=== PATIENT | female | born 1985 | race Caucasian/White ===

== ENCOUNTER 2016-12-29 09:47 | Outpatient (CLI) | payer BC ==
[~2016-12-29] VITALS: Ht 157.5 cm; Wt 114.0 kg
[~2016-12-29 09:47] MED LIST: ASPI-515 PO; CLOM50TA PO; METF100P3 PO; ONDA4TAB7 PO
[2016-12-29 10:04] VITALS: BP 115/77
[2016-12-29] MEDS ORDERED: PREN1TAB60 PO (11:06)
== END 2016-12-29 11:15 | disposition home or self-care (01) ==
LOC: LDOP 09:47
PROVIDERS: ATTEND Obstetrics & Gynecology Gynecology
DX: O24.419 Gestational diabetes mellitus in pregnancy, unspecified control (principal); O9A.213 Injury, poisoning and certain other consequences of external causes complicating pregnancy, third trimester; Z3A.34 34 weeks gestation of pregnancy
CPT/HCPCS: 59025; 99211; G0463

== ENCOUNTER 2017-01-18 22:04 | Observation (INO) | payer BC ==
[~2017-01-18] VITALS: Ht 165.1 cm; Wt 118.0 kg
[~2017-01-18 22:04] MED LIST changes: +PREN1TAB60 PO
[2017-01-19] MEDS ORDERED: LACTATED RINGERS 1,000 ML IV ONE (01:00)
[2017-01-19] MEDS ORDERED: FENTANYL PF 100 MCG/2ML ONE ×2 (01:27→06:32)
[2017-01-19] MEDS: FENTANYL PF 100 MCG/2ML IVPush PRN ×2 (01:39→06:35)
[2017-01-19] MEDS ORDERED: LACTATED RINGERS 1,000 ML IV SCH (05:30)
== END 2017-01-19 10:42 | disposition home or self-care (01) ==
LOC: LDOP 22:04 → LDIP 01-19 01:45
PROVIDERS: ADMIT Obstetrics & Gynecology Gynecology; ATTEND Obstetrics & Gynecology Gynecology
DX: O42.92 Full-term premature rupture of membranes, unspecified as to length of time between rupture and onset of labor (principal); O26.893 Other specified pregnancy related conditions, third trimester; R10.9 Unspecified abdominal pain; Z3A.37 37 weeks gestation of pregnancy
CPT/HCPCS: 59025; 81001; 87086; 96361; 96374; 96376; G0378; J3010; J7120; 96360

== ENCOUNTER 2017-01-29 22:20 | Outpatient (CLI) | payer BC ==
[~2017-01-29] VITALS: Ht 157.5 cm; Wt 109.1 kg
[2017-01-29 22:30] VITALS: BP 118/70
== END 2017-01-29 23:31 | disposition home or self-care (01) ==
LOC: LDOP 22:20
PROVIDERS: ATTEND Obstetrics & Gynecology Gynecology
DX: O42.92 Full-term premature rupture of membranes, unspecified as to length of time between rupture and onset of labor (principal); O24.419 Gestational diabetes mellitus in pregnancy, unspecified control; O34.83 Maternal care for other abnormalities of pelvic organs, third trimester; E28.2 Polycystic ovarian syndrome; Z3A.38 38 weeks gestation of pregnancy
CPT/HCPCS: 59025; 81001; 87086; 89060; 99211; G0463; Q0114

== ENCOUNTER 2017-02-16 08:31 | Inpatient (IN) | payer BC ==
[~2017-02-16] VITALS: Ht 157.5 cm; Wt 111.4 kg
[2017-02-16] MEDS ORDERED: OXYTOCIN 30U/ 0.9% NaCL 500ML 500 ML IV SCH (10:14)
[2017-02-16] MEDS ORDERED: LACTATED RINGERS 1,000 ML IV SCH ×2 (10:14→10:30)
[2017-02-16] MEDS ORDERED: SODIUM CITRATE/CITRIC ACID 30 ML UDC PO ONE (10:30)
[2017-02-16] MEDS ORDERED: METOCLOPRAMIDE 5 MG/ML, 2ML IV ONE (10:30)
[2017-02-16] MEDS ORDERED: PLEASE ENTER HEIGHT AND WEIGHT MC SCH (10:30)
[2017-02-16] MEDS ORDERED: LACTATED RINGERS 1,000 ML IVBOLUS ONE (10:30)
[2017-02-16 10:38] VITALS: BP 108/68
[2017-02-16] MEDS ORDERED: NEWBORN KIT ONE (11:03)
[2017-02-16] MEDS ORDERED: OXYTOCIN 30U/ 0.9% NaCL 500ML 500 ML ONE (11:03)
[2017-02-16] MEDS ORDERED: SODIUM CITRATE/CITRIC ACID 30 ML UDC ONE ×2 (11:58→12:12)
[2017-02-16] MEDS ORDERED: OXYTOCIN 10 UNITS/ML, 1ML ONE (12:12)
[2017-02-16] MEDS ORDERED: LIDOCAINE 1%, 20ML ONE (12:12)
[2017-02-16] MEDS ORDERED: EPHEDRINE 50 MG/ML, 1ML ONE (12:12)
[2017-02-16] MEDS ORDERED: CEFAZOLIN 1,000 MG ONE (12:12)
[2017-02-16] MEDS ORDERED: KETOROLAC 30 MG/1 ML ONE (12:12)
[2017-02-16] MEDS ORDERED: FENTANYL PF 100 MCG/2ML ONE (12:55)
[2017-02-16] MEDS: KETOROLAC 30 MG/1 ML IV SCH ×2 (13:30→19:55)
[2017-02-16] MEDS: OXYTOCIN 30U/ 0.9% NaCL 500ML 500 ML IV SCH ×2 (13:33→23:33)
[2017-02-16] MEDS: LACTATED RINGERS 1,000 ML IV SCH ×4 (13:33→23:33)
[2017-02-16] MEDS ORDERED: RHOGAM FROM BLOOD BANK 1 NOTE EA IM/IV ONE (14:00)
[2017-02-16] MEDS ORDERED: MEASLES,MUMPS&RUBELLA VACC/PF 0.5 ML SQ-VACC PRN (14:00)
[2017-02-16] MEDS ORDERED: ONDANSETRON 2MG/ML, 2ML IV PRN ×2 (14:00→15:00)
[2017-02-16] MEDS ORDERED: OXYcodone/APAP 5/325MG TABLET PO PRN (14:00)
[2017-02-16] MEDS ORDERED: CALCIUM CARBONATE 500 MG TAB.CHEW PO PRN (14:00)
[2017-02-16] MEDS ORDERED: MISOPROSTOL 200 MCG TABLET PR PRN (14:00)
[2017-02-16] MEDS ORDERED: DIPH,PERTUSS(ACELL),TET VAC/PF NC IM-VACC PRN (14:00)
[2017-02-16] MEDS ORDERED: HYDROmorphone 1 MG/ML, 1ML ONE (14:36)
[2017-02-16] MEDS: HYDROmorphone 1 MG/ML, 1ML IV PRN ×3 (14:44→22:29)
[2017-02-16] MEDS ORDERED: HYDROmorphone 2 MG/ML, 1ML IV PRN (15:00)
[2017-02-16] MEDS ORDERED: OXYcodone 5 MG/5 ML ORAL.SOL UDC PO PRN (15:00)
[2017-02-16] MEDS ORDERED: EPHEDRINE 50 MG/ML, 1ML IV PRN (15:00)
[2017-02-16] MEDS ORDERED: FENTANYL PF 100 MCG/2ML IVPush PRN (15:00)
[2017-02-16] MEDS: NYSTATIN TOPICAL POWDER 15GM TP SCH ×2 (16:00→23:00)
[2017-02-16 16:36] VITALS: BP 126/72
[2017-02-16 17:55] VITALS: BP 90/62
[2017-02-16] MEDS: SIMETHICONE 80 MG CHEW TAB PO PRN (19:55)
[2017-02-16 20:00] VITALS: BP 115/67
[2017-02-17] MEDS: KETOROLAC 30 MG/1 ML IV SCH ×4 (02:02→20:00)
[2017-02-17 02:09] VITALS: BP 103/64
[2017-02-17] MEDS: OXYcodone IR 5MG TABLET PO PRN ×6 (02:09→22:25)
[2017-02-17 03:55] VITALS: BP 111/61
[2017-02-17] MEDS: LACTATED RINGERS 1,000 ML IV SCH ×5 (05:33→21:33)
[2017-02-17] MEDS: DOCUSATE 100 MG CAPSULE PO PRN ×2 (07:58→20:51)
[2017-02-17] MEDS: SIMETHICONE 80 MG CHEW TAB PO PRN ×3 (07:59→20:51)
[2017-02-17 08:10] VITALS: BP 104/70
[2017-02-17] MEDS: NYSTATIN TOPICAL POWDER 15GM TP SCH ×3 (09:00→21:00)
[2017-02-17] MEDS: OXYTOCIN 30U/ 0.9% NaCL 500ML 500 ML IV SCH ×2 (09:33→19:33)
[2017-02-17] MEDS: PRENATAL VIT/IRON/FA 1 EACH TABLET PO SCH (10:22)
[2017-02-17 12:30] VITALS: BP 106/70
[2017-02-17 19:30] VITALS: BP 103/69
[2017-02-17] MEDS: IBUPROFEN 600 MG TABLET PO PRN (20:51)
[2017-02-18] MEDS: KETOROLAC 30 MG/1 ML IV SCH ×2 (02:00→08:00)
[2017-02-18] MEDS: OXYcodone IR 5MG TABLET PO PRN ×5 (03:00→20:54)
[2017-02-18] MEDS: IBUPROFEN 600 MG TABLET PO PRN ×4 (03:00→23:12)
[2017-02-18] MEDS: SIMETHICONE 80 MG CHEW TAB PO PRN ×3 (03:00→19:47)
[2017-02-18] MEDS: OXYTOCIN 30U/ 0.9% NaCL 500ML 500 ML IV SCH ×2 (05:33→15:33)
[2017-02-18] MEDS: LACTATED RINGERS 1,000 ML IV SCH ×4 (05:33→15:33)
[2017-02-18] MEDS: NYSTATIN TOPICAL POWDER 15GM TP SCH ×3 (07:31→21:00)
[2017-02-18] MEDS: PRENATAL VIT/IRON/FA 1 EACH TABLET PO SCH (07:31)
[2017-02-18 08:10] VITALS: BP 98/63
[2017-02-18] MEDS: DOCUSATE 100 MG CAPSULE PO PRN ×2 (09:56→20:54)
[2017-02-18 21:00] VITALS: BP 112/62
[2017-02-19] MEDS: OXYcodone IR 5MG TABLET PO PRN ×3 (00:45→10:11)
[2017-02-19] MEDS: IBUPROFEN 600 MG TABLET PO PRN (05:23)
[2017-02-19 07:20] VITALS: BP 116/76
[2017-02-19] MEDS: PRENATAL VIT/IRON/FA 1 EACH TABLET PO SCH (10:10)
[2017-02-19] MEDS: DOCUSATE 100 MG CAPSULE PO PRN (10:10)
[2017-02-19] MEDS ORDERED: OXYC-302 PO (11:48)
[2017-02-19] MEDS ORDERED: IBUP-1222 PO (11:48)
[2017-02-19] MEDS ORDERED: DOCU-30 PO (11:49)
== END 2017-02-19 12:37 | disposition home or self-care (01) | DRG 765 ==
LOC: LDIP 09:57 → 2NW 15:48
PROVIDERS: ADMIT Obstetrics & Gynecology Gynecology; ATTEND Obstetrics & Gynecology Gynecology
PROC: 10D00Z1 Extraction of Products of Conception, Low, Open Approach (ICD-10-PCS; principal; 2017-02-16)
DX: O34.211 Maternal care for low transverse scar from previous cesarean delivery (principal); Z68.41 Body mass index [BMI] 40.0-44.9, adult; O98.82 Other maternal infectious and parasitic diseases complicating childbirth; E66.9 Obesity, unspecified; O24.420 Gestational diabetes mellitus in childbirth, diet controlled; B37.9 Candidiasis, unspecified; O48.0 Post-term pregnancy; O99.214 Obesity complicating childbirth; Z83.3 Family history of diabetes mellitus; Z82.3 Family history of stroke; Z80.41 Family history of malignant neoplasm of ovary; Z80.3 Family history of malignant neoplasm of breast; Z88.1 Allergy status to other antibiotic agents; Z88.5 Allergy status to narcotic agent; Z88.8 Allergy status to other drugs, medicaments and biological substances; Z37.0 Single live birth; Z3A.41 41 weeks gestation of pregnancy
CPT/HCPCS: 36415; 82803; 82962; 85025; 86850; 86900; J0690; J1170; J1885; J3010; J3490; J2590; J7120

== ENCOUNTER 2017-12-15 17:24 | Emergency (ER) | payer BC ==
[~2017-12-15] VITALS: Ht 160 cm; Wt 119.0 kg
[~2017-12-15 17:24] MED LIST changes: +DOCU-131 PO; +IBUP-1222 PO; +OXYC-302 PO
[2017-12-15 17:31] VITALS: BP 111/80
[2017-12-15] MEDS ORDERED: KETOROLAC 30 MG/1 ML ONE (17:46)
[2017-12-15] MEDS ORDERED: DIAZEPAM 5 MG TABLET ONE (17:46)
[2017-12-15] MEDS ORDERED: DIAZEPAM 5 MG TABLET PO ONE (18:00)
[2017-12-15] MEDS ORDERED: KETOROLAC 30 MG/1 ML IM ONE (18:00)
== END 2017-12-15 18:30 | disposition home or self-care (01) ==
LOC: ED 18:29
DX: S20.212A Contusion of left front wall of thorax, initial encounter (principal); X58.XXXA Exposure to other specified factors, initial encounter; Y93.89 Activity, other specified; Y92.009 Unspecified place in unspecified non-institutional (private) residence as the place of occurrence of the external cause; Y99.8 Other external cause status; M94.0 Chondrocostal junction syndrome [Tietze]
CPT/HCPCS: 71101; 96372; 99284; J1885

== ENCOUNTER 2018-04-03 22:22 | Emergency (ER) | payer BC ==
[~2018-04-03] VITALS: Ht 160 cm; Wt 121.9 kg
[2018-04-03 23:24] LABS: BASOPHILS # (AUTO) 0.05 x10^3/uL (0-0.1); BASOPHILS % (AUTO) 1 % (0-1); EOSINOPHILS # (AUTO) 0.76 x10^3/uL (0-0.4); EOSINOPHILS % (AUTO) 7 % (1-7); LYMPHOCYTES # (AUTO) 2.69 x10^3/uL (1-3.4); LYMPHOCYTES % (AUTO) 26 % (22-44); MD NO; MEAN CORPUSCULAR HEMOGLOBIN 30.3 pg (27.0-34.8); MEAN CORPUSCULAR HGB CONC 34.3 g/dL (32.4-35.8); MEAN CORPUSCULAR VOLUME 88.5 fL (80-100); MEAN PLATELET VOLUME 7.9 fL (7.4-10.4); MONOCYTES # (AUTO) 0.57 x10^3/uL (0.2-0.8); MONOCYTES % (AUTO) 6 % (2-9); NEUTROPHILS # (AUTO) 6.36 x10^3/uL (1.8-6.8); NEUTROPHILS % (AUTO) 61 % (42-75); PLATELET COUNT 319 x10^3/uL (130-400); RED BLOOD COUNT 4.34 x10^6/uL (3.82-5.3); RED CELL DISTRIBUTION WIDTH 13.3 % (9.6-15.2)
[2018-04-03] MEDS ORDERED: KETOROLAC 30 MG/1 ML ONE (23:29)
[2018-04-03] MEDS ORDERED: SODIUM CHLORIDE FLUSH 10ML SYR IVF ONE (23:30)
[2018-04-03] MEDS ORDERED: KETOROLAC 30 MG/1 ML IVPush ONE (23:30)
[2018-04-03 23:37] LABS: ALANINE AMINOTRANSFERASE 19 U/L (12-78); ALBUMIN 3.2 g/dL (3.4-5.0); ANION GAP 6 mmol/L (5-15); CALCIUM 8.4 mg/dL (8.5-10.1); CHLORIDE 110 mmol/L (98-107); CREATININE 0.88 mg/dL (0.55-1.02)
[2018-04-03 23:42] LABS: ALKALINE PHOSPHATASE 70 U/L (45-117); BILIRUBIN,TOTAL 0.1 mg/dL (0.2-1.0); TOTAL PROTEIN 6.4 g/dL (6.4-8.2)
[2018-04-04 00:46] LABS: MICROSCOPIC INDICATED
[2018-04-04 01:02] LABS: CULTURE INDICATED? NO
[2018-04-04] MEDS ORDERED: HYDROmorphone 2 MG/ML, 1ML ONE (01:13)
[2018-04-04] MEDS: HYDROmorphone 2 MG/ML, 1ML IVPush PRN ×2 (01:16→01:57)
[2018-04-04] MEDS ORDERED: MAALOX/HYOSCYAMINE/LIDOCAINE 45 ML BTL ONE (01:54)
[2018-04-04] MEDS ORDERED: HYDROcodone/APAP 5/325 TABLET ONE (01:56)
[2018-04-04] MEDS ORDERED: HYDROcodone/APAP 5/325 TABLET PO ONE (02:00)
[2018-04-04] MEDS ORDERED: MAALOX/HYOSCYAMINE/LIDOCAINE 45 ML BTL PO ONE (02:00)
[2018-04-04 02:17] VITALS: BP 145/76
== END 2018-04-04 02:19 | disposition home or self-care (01) ==
LOC: ED 04-04 02:10
DX: R10.11 Right upper quadrant pain (principal); N92.6 Irregular menstruation, unspecified; R11.0 Nausea
CPT/HCPCS: 36415; 76700; 80053; 81001; 83690; 84703; 85025; 96374; 99285; J1170; J1885

== ENCOUNTER 2020-04-04 18:11 | Outpatient (CLI) | payer BC, OTHER ==
[~2020-04-04] VITALS: Ht 157.5 cm; Wt 117.3 kg
[2020-04-04 18:15] VITALS: BP 114/56
== END 2020-04-04 19:18 | disposition home or self-care (01) ==
LOC: LDOP 18:11
PROVIDERS: ATTEND Obstetrics & Gynecology
DX: Z34.93 Encounter for supervision of normal pregnancy, unspecified, third trimester (principal); Z3A.34 34 weeks gestation of pregnancy
CPT/HCPCS: 59025

== ENCOUNTER 2020-04-24 17:26 | Outpatient (CLI) | payer BC ==
[~2020-04-24] VITALS: Ht 157.5 cm; Wt 119.0 kg
[2020-04-24 17:38] VITALS: BP 131/76
== END 2020-04-24 19:24 | disposition home or self-care (01) ==
LOC: LDOP 17:26
PROVIDERS: ATTEND Obstetrics & Gynecology
DX: O26.893 Other specified pregnancy related conditions, third trimester (principal); R10.9 Unspecified abdominal pain; Z3A.37 37 weeks gestation of pregnancy
CPT/HCPCS: 59025

== ENCOUNTER 2020-04-25 19:33 | Outpatient (CLI) | payer BC ==
[~2020-04-25] VITALS: Ht 157.5 cm; Wt 120.0 kg
[2020-04-25 20:03] VITALS: BP 131/79
[2020-04-25] MEDS ORDERED: ZOLPIDEM 5MG TABLET ONE (22:42)
[2020-04-25] MEDS ORDERED: ZOLPIDEM 5MG TABLET PO PRN (23:00)
== END 2020-04-25 22:54 | disposition home or self-care (01) ==
LOC: LDOP 19:33
PROVIDERS: ATTEND Obstetrics & Gynecology
DX: O24.414 Gestational diabetes mellitus in pregnancy, insulin controlled (principal); O42.90 Premature rupture of membranes, unspecified as to length of time between rupture and onset of labor, unspecified weeks of gestation; O62.9 Abnormality of forces of labor, unspecified; Z3A.38 38 weeks gestation of pregnancy
CPT/HCPCS: 59025; 81003

== ENCOUNTER → 2020-04-28 | Outpatient (CLI) | payer BC | END | disposition home or self-care (01) | LOC: STAR 11:54 | PROVIDERS: ATTEND Obstetrics & Gynecology | DX: Z01.812 Encounter for preprocedural laboratory examination (principal); Z20.828 Contact with and (suspected) exposure to other viral communicable diseases | CPT/HCPCS: 36415; 87635 ==

== ENCOUNTER 2020-05-02 12:32 | Inpatient (IN) | payer BC ==
[~2020-05-02] VITALS: Ht 157.5 cm; Wt 120.5 kg
[2020-05-02 12:51] VITALS: BP 129/62
[2020-05-02] MEDS ORDERED: ONDANSETRON 2MG/ML, 2ML IVPush ONE (13:00)
[2020-05-02] MEDS ORDERED: SODIUM CITRATE/CITRIC ACID 30 ML UDC PO ONE (13:00)
[2020-05-02] MEDS ORDERED: METOCLOPRAMIDE 5 MG/ML, 2ML IV ONE (13:00)
[2020-05-02] MEDS ORDERED: LACTATED RINGERS 1,000 ML IVBOLUS ONE (13:00)
[2020-05-02] MEDS ORDERED: NEWBORN KIT ONE (13:18)
[2020-05-02] MEDS ORDERED: OXYTOCIN 30U/ 0.9% NaCL 500ML 0 ML ONE (13:19)
[2020-05-02] MEDS ORDERED: METOCLOPRAMIDE 5 MG/ML, 2ML ONE (13:19)
[2020-05-02 13:27] LABS: BASOPHILS % (AUTO) 1 % (0-1); EOSINOPHILS % (AUTO) 1 % (1-7); LYMPHOCYTES % (AUTO) 20 % (22-44); MEAN CORPUSCULAR HEMOGLOBIN 29.3 pg (27.0-34.8); MEAN PLATELET VOLUME 9.4 fL (7.4-10.4); MONOCYTES % (AUTO) 7 % (2-9); NEUTROPHILS % (AUTO) 72 % (42-75); PLATELET COUNT 213 x10^3/uL (130-400); RED BLOOD COUNT 4.52 x10^6/uL (3.82-5.3); RED CELL DISTRIBUTION WIDTH 13.5 % (9.6-15.2)
[2020-05-02 13:28] LABS: MD NO
[2020-05-02] MEDS ORDERED: PHENYLEPHRINE 10 MG/ML ONE (13:45)
[2020-05-02] MEDS ORDERED: ONDANSETRON 2MG/ML, 2ML ONE (13:45)
[2020-05-02] MEDS ORDERED: OXYTOCIN 10 UNITS/ML, 1ML ONE (13:45)
[2020-05-02] MEDS ORDERED: KETOROLAC 30 MG/1 ML ONE (13:45)
[2020-05-02] MEDS ORDERED: DEXAMETHASONE 4 MG/ML, 1ML ONE (13:45)
[2020-05-02] MEDS ORDERED: CEFAZOLIN 1,000 MG ONE (13:45)
[2020-05-02] MEDS ORDERED: EPHEDRINE 50 MG/ML, 1ML ONE (13:45)
[2020-05-02] MEDS ORDERED: FENTANYL PF 100 MCG/2ML ONE (13:46)
[2020-05-02] MEDS ORDERED: MIDAZOLAM 1 MG/ML, 2ML ONE (13:46)
[2020-05-02] MEDS ORDERED: HYDROmorphone 2 MG/ML, 1ML ONE (13:46)
[2020-05-02] MEDS ORDERED: LABETALOL 5MG/ML, 20ML IV PRN (14:00)
[2020-05-02] MEDS ORDERED: EPHEDRINE 50 MG/ML, 1ML IVPush PRN (14:00)
[2020-05-02] MEDS ORDERED: ONDANSETRON 2MG/ML, 2ML IVPush PRN (14:00)
[2020-05-02] MEDS ORDERED: METOPROLOL 1 MG/ML, 5ML IV PRN (14:00)
[2020-05-02] MEDS ORDERED: HYDROcodone/APAP 7.5-325MG/15ML UDC PO PRN (14:00)
[2020-05-02] MEDS ORDERED: HYDROmorphone 2 MG/ML, 1ML IVPush PRN (14:00)
[2020-05-02] MEDS ORDERED: hydrALAzine 20 MG/ML, 1ML IV PRN (14:00)
[2020-05-02] MEDS ORDERED: OXYcodone 5 MG/5 ML ORAL.SOL UDC PO PRN (14:00)
[2020-05-02] MEDS ORDERED: FENTANYL PF 100 MCG/2ML IV PRN (14:00)
[2020-05-02] MEDS ORDERED: ALBUTEROL SULFATE 2.5 MG/3 ML NPPB PRN (14:00)
[2020-05-02] MEDS: KETOROLAC 30 MG/1 ML IV SCH ×2 (15:30→21:17)
[2020-05-02] MEDS ORDERED: MISOPROSTOL 200 MCG TABLET PR PRN (17:00)
[2020-05-02] MEDS: LACTATED RINGERS 1,000 ML IV SCH ×2 (17:00→22:07)
[2020-05-02] MEDS ORDERED: ONDANSETRON 2MG/ML, 2ML IV PRN (17:00)
[2020-05-02] MEDS ORDERED: CALCIUM CARBONATE 500 MG TAB.CHEW PO PRN (17:00)
[2020-05-02] MEDS: OXYTOCIN 30U/ 0.9% NaCL 500ML 500 ML IV SCH (17:00)
[2020-05-02] MEDS ORDERED: BISACODYL 10 MG SUPP PR PRN (17:00)
[2020-05-02] MEDS ORDERED: TRANEXAMIC ACID 100 MG/ML, 10ML IV ONE (17:00)
[2020-05-02 18:17] VITALS: BP 124/78
[2020-05-02] MEDS: SIMETHICONE 80 MG CHEW TAB PO PRN (18:25)
[2020-05-02] MEDS: OXYcodone IR 5MG TABLET PO PRN ×2 (18:27→23:01)
[2020-05-02 20:25] VITALS: BP 119/76
[2020-05-02] MEDS: DOCUSATE 100 MG CAPSULE PO PRN (21:18)
[2020-05-02] MEDS: ACETAMINOPHEN 325 MG TABLET PO SCH (21:18)
[2020-05-02] MEDS: CEFAZOLIN 2,000 MG in SODIUM CHLORIDE 0.9% 50 ML IV SCH (23:42)
[2020-05-02 23:54] VITALS: BP 116/72
[2020-05-03 00:44] LABS: BASOPHILS % (AUTO) 0 % (0-1); EOSINOPHILS % (AUTO) 0 % (1-7); LYMPHOCYTES % (AUTO) 9 % (22-44); MEAN CORPUSCULAR HEMOGLOBIN 29.4 pg (27.0-34.8); MEAN CORPUSCULAR HGB CONC 33.6 g/dL (32.4-35.8); MEAN PLATELET VOLUME 9.4 fL (7.4-10.4); MONOCYTES % (AUTO) 5 % (2-9); NEUTROPHILS % (AUTO) 86 % (42-75); PLATELET COUNT 210 x10^3/uL (130-400); RED BLOOD COUNT 3.62 x10^6/uL (3.82-5.3); RED CELL DISTRIBUTION WIDTH 13.2 % (9.6-15.2)
[2020-05-03 00:51] LABS: MD NO
[2020-05-03] MEDS: LACTATED RINGERS 1,000 ML IV SCH ×6 (01:00→23:00)
[2020-05-03] MEDS: OXYTOCIN 30U/ 0.9% NaCL 500ML 500 ML IV SCH ×3 (03:00→23:00)
[2020-05-03] MEDS: OXYcodone IR 5MG TABLET PO PRN ×5 (03:13→20:10)
[2020-05-03] MEDS: ACETAMINOPHEN 325 MG TABLET PO SCH ×4 (03:13→21:37)
[2020-05-03] MEDS: KETOROLAC 30 MG/1 ML IV SCH ×4 (03:13→21:37)
[2020-05-03 04:45] VITALS: BP 117/76
[2020-05-03 07:30] VITALS: BP 109/72
[2020-05-03] MEDS: DOCUSATE 100 MG CAPSULE PO PRN ×2 (08:18→20:10)
[2020-05-03] MEDS: PRENATAL VIT/IRON/FA 1 EACH TABLET PO SCH (08:18)
[2020-05-03] MEDS: CEFAZOLIN 2,000 MG in SODIUM CHLORIDE 0.9% 50 ML IV SCH ×2 (09:00→15:49)
[2020-05-03] MEDS ORDERED: OXYcodone IR 5MG TABLET PO ONE (11:30)
[2020-05-03 12:00] VITALS: BP 115/77
[2020-05-03 16:00] VITALS: BP 117/63
[2020-05-03] MEDS: SIMETHICONE 80 MG CHEW TAB PO PRN (18:10)
[2020-05-03 19:10] VITALS: BP 118/70
[2020-05-04] MEDS: OXYcodone IR 5MG TABLET PO PRN ×4 (00:11→14:04)
[2020-05-04] MEDS: LACTATED RINGERS 1,000 ML IV SCH ×3 (01:00→09:00)
[2020-05-04] MEDS: ACETAMINOPHEN 325 MG TABLET PO SCH ×4 (03:30→14:04)
[2020-05-04] MEDS: KETOROLAC 30 MG/1 ML IV SCH ×2 (03:30→09:31)
[2020-05-04 07:34] VITALS: BP 123/76
[2020-05-04] MEDS: PRENATAL VIT/IRON/FA 1 EACH TABLET PO SCH (09:00)
[2020-05-04] MEDS: OXYTOCIN 30U/ 0.9% NaCL 500ML 500 ML IV SCH (09:00)
[2020-05-04] MEDS ORDERED: OXYC5CAP2 PO (11:10)
[2020-05-04] MEDS ORDERED: IBUP-1222 PO (11:12)
[2020-05-04] MEDS ORDERED: ACET650S21 PO (11:12)
[2020-05-04] MEDS ORDERED: DOCU-131 PO (11:13)
[2020-05-04] MEDS ORDERED: FLUC150T PO (11:15)
[2020-05-04] MEDS ORDERED: IBUPROFEN 600 MG TABLET PO SCH (17:00)
== END 2020-05-04 15:29 | disposition home or self-care (01) | DRG 785 ==
LOC: LDIP 12:32 → 2NW 17:50
PROVIDERS: ADMIT Student in an Organized Health Care Education/Training Program; ATTEND Student in an Organized Health Care Education/Training Program
PROC: 10D00Z1 Extraction of Products of Conception, Low, Open Approach (ICD-10-PCS; principal; 2020-05-02)
PROC: 0UB70ZZ Excision of Bilateral Fallopian Tubes, Open Approach (ICD-10-PCS; 2020-05-02)
DX: O24.429 Gestational diabetes mellitus in childbirth, unspecified control (principal); O99.214 Obesity complicating childbirth; E66.01 Morbid (severe) obesity due to excess calories; O99.344 Other mental disorders complicating childbirth; F32.9 Major depressive disorder, single episode, unspecified; O34.211 Maternal care for low transverse scar from previous cesarean delivery; O99.824 Streptococcus B carrier state complicating childbirth; Z88.1 Allergy status to other antibiotic agents; Z88.5 Allergy status to narcotic agent; Z3A.38 38 weeks gestation of pregnancy; Z37.0 Single live birth; Z30.2 Encounter for sterilization
CPT/HCPCS: 36415; 82962; 85025; 86592; 86850; 86900; 88302; G0378; J0690; J1100; J1170; J1885; J2250; J2405; J3010; J2370; J2590; J2765; J7120